=== PATIENT | male | born 1940 | race Caucasian/White ===

== ENCOUNTER 2018-08-16 12:07 | Emergency (ER) | payer OTHER ==
[~2018-08-16] VITALS: Ht 177.8 cm; Wt 106.6 kg
[2018-08-16 12:13] VITALS: BP 124/66; Ht 177.8 cm; Wt 106.6 kg
[2018-08-16 13:03] LABS: PLATELET COUNT 216 x10^3mcL (130-400); RED CELL DISTRIBUTION WIDTH 12.4 % (11.5-14.5)
[2018-08-16 13:15] LABS: CALCIUM 9.2 mg/dL (8.5-10.1); CARBON DIOXIDE 31.3 mmol/L (21-32); CHLORIDE SERUM 98 mmol/L (98-107); CREATININE SERUM 1.7 mg/dL (0.7-1.3); GLUCOSE SERUM 117 mg/dL (74-106); POTASSIUM SERUM 4.5 mmol/L (3.5-5.1); SODIUM SERUM 137 mmol/L (136-145)
[2018-08-16 13:19] LABS: ALBUMIN 3.9 g/dL (3.4-5.0); ALKALINE PHOSPHATASE 67 U/L (46-116); ALT/SGPT 26 U/L (16-63); AST/SGOT 19 U/L (15-37); BILIRUBIN TOTAL 0.41 mg/dL (0.20-1.00); TOTAL PROTEIN, SERUM 7.6 g/dL (6.4-8.2)
[2018-08-16 13:35] LABS: UA SPECIFIC GRAVITY 1.015 (1.005-1.035); microscopic required? YES; urine erythrocyte NEGATIVE (NEGATIVE)
[2018-08-16 13:51] LABS: BAND NEUTROPHIL 4 % (0-10); BASOPHIL 1 % (0-2); MONOCYTE 13 % (0-7); SEGMENTED NEUTROPHILS 52 % (37-75)
[2018-08-16 13:52] LABS: PLATELET MORPHOLOGY LARGE PLATELET SEEN; rbc morphology (normal/abnorm) ABNORMAL (NORMAL); tear drop cell (dacryocyte) 1+
== END 2018-08-16 15:03 | disposition home or self-care (01) ==
LOC: ED 12:07
PROVIDERS: Emergency Medicine
DX: M79.651 Pain in right thigh (principal); R60.0 Localized edema; N28.9 Disorder of kidney and ureter, unspecified; I11.0 Hypertensive heart disease with heart failure; I50.9 Heart failure, unspecified; E11.9 Type 2 diabetes mellitus without complications; J44.9 Chronic obstructive pulmonary disease, unspecified
CPT/HCPCS: 36415; 83880; Q0092

== ENCOUNTER 2019-11-10 14:00 | Emergency (ER) | payer OTHER ==
[~2019-11-10] VITALS: Ht 180.3 cm; Wt 106.6 kg
[2019-11-10 14:15] VITALS: Ht 180.3 cm; Wt 106.6 kg
[2019-11-10 15:55] VITALS: BP 144/89
== END 2019-11-10 16:11 | disposition home or self-care (01) ==
LOC: ED 14:00
DX: S92.352A Displaced fracture of fifth metatarsal bone, left foot, initial encounter for closed fracture (principal); J44.9 Chronic obstructive pulmonary disease, unspecified; I11.0 Hypertensive heart disease with heart failure; I50.9 Heart failure, unspecified; E11.9 Type 2 diabetes mellitus without complications; N40.0 Benign prostatic hyperplasia without lower urinary tract symptoms; W22.8XXA Striking against or struck by other objects, initial encounter; Y93.89 Activity, other specified; Y92.89 Other specified places as the place of occurrence of the external cause; Y99.8 Other external cause status

== ENCOUNTER 2019-11-13 14:20 | Emergency (ER) | payer OTHER ==
[~2019-11-13] VITALS: Ht 177.8 cm; Wt 104.3 kg
[2019-11-13 14:57] VITALS: Ht 177.8 cm; Wt 104.3 kg
[2019-11-13 16:23] LABS: BASOPHIL % 0.3 % (0-2); PLATELET COUNT 317 x10^3mcL (130-400)
[2019-11-13 16:33] LABS: RED CELL DISTRIBUTION WIDTH 14.9 % (11.5-14.5)
[2019-11-13 17:14] LABS: CALCIUM 9.5 mg/dL (8.5-10.1); CARBON DIOXIDE 33.2 mmol/L (21-32); CHLORIDE SERUM 97 mmol/L (98-107); CREATININE SERUM 1.3 mg/dL (0.7-1.3); GLUCOSE SERUM 118 mg/dL (74-106); POTASSIUM SERUM 3.7 mmol/L (3.5-5.1); SODIUM SERUM 137 mmol/L (136-145)
[2019-11-13 17:19] LABS: ALKALINE PHOSPHATASE 73 U/L (46-116); ALT/SGPT 23 U/L (16-63); AST/SGOT 24 U/L (15-37); BILIRUBIN TOTAL 0.27 mg/dL (0.20-1.00); TOTAL PROTEIN, SERUM 8.2 g/dL (6.4-8.2)
[2019-11-13 17:24] LABS: ALBUMIN 2.7 g/dL (3.4-5.0)
[2019-11-13] MEDS ORDERED: ASPIR 8181 MG PO (18:38)
[2019-11-13] MEDS ORDERED: ALDACTONE50 MG PO (18:39)
[2019-11-13] MEDS ORDERED: CARVEDILOL25 M1 PO (18:39)
[2019-11-13] MEDS ORDERED: OMEPRAZOLE40 M1 PO (18:40)
[2019-11-13] MEDS ORDERED: FUROSEMIDE80 MG PO (18:40)
[2019-11-13] MEDS ORDERED: GLUCOPHAGE XR500 MG PO (18:41)
[2019-11-13] MEDS ORDERED: FLO4 PO (18:42)
[2019-11-13] MEDS ORDERED: HYDRALAZINE HY100 MG PO (18:42)
[2019-11-14 01:48] VITALS: BP 107/57
== END 2019-11-14 01:10 | disposition short-term general hospital (02) ==
LOC: ED 14:20
PROVIDERS: Emergency Medicine
DX: S92.902D Unspecified fracture of left foot, subsequent encounter for fracture with routine healing (principal); M25.562 Pain in left knee; I50.9 Heart failure, unspecified; I11.0 Hypertensive heart disease with heart failure; E11.9 Type 2 diabetes mellitus without complications; N40.0 Benign prostatic hyperplasia without lower urinary tract symptoms; X58.XXXD Exposure to other specified factors, subsequent encounter
CPT/HCPCS: 82962; 85378; J1885; J2405; J3010; Q0092; Q9967